=== PATIENT | female | born 1985 | race Caucasian/White ===

== ENCOUNTER 2025-06-27 15:07 | Emergency (ER) | payer BC, SELFPAY ==
--- NOTE | ~2025-06-27 | XR_ITS ---
EXAMINATION: XR foot LT min 3V, 06/27/2025 15:18 CDT HISTORY: injured left foot while dancing. pain distal 1st toe and met COMPARISON: No comparisons available. Findings: No acute fracture or malalignment. No significant degenerative changes. Soft tissues unremarkable. Impression: No acute fracture or malalignment. Reviewed, dictated and finalized at location P. Impression: No acute fracture or malalignment.
[2025-06-27 15:31] VITALS: BP 116/84; PULSE 113; RESP 16; TEMP 36.4; O2SAT 98
--- NOTE | 2025-06-27 15:41 | ED.LOWEXIN ---
HPI - Extremity Injury (Lower) General Chief Complaint: Extremity Injury, Lower Stated Complaint: INJURED L FOOT Time Seen by Provider: 06/27/25 15:41 Source: patient Mode of arrival: ambulatory Limitations: no limitations History of Present Illness HPI Narrative: 40-year-old female presented for complaint of left great toe pain. Onset yesterday. Endorses a cut to the end of the toe. She says she was dancing at a bar, and was intoxicated prior to the pain. Does not recall an injury. She was able to clean blood off of the toe today. Endorses ?a bump? at the MTP area. Denies bruising, numbness, tingling, weakness or decreased range of motion. Related Data Home Medications ?Medication ?Instructions ?Recorded ?Confirmed ?Last Taken ?Type alprazolam 1 mg tablet (Xanax) 1 mg PO QHS 10/29/22 06/27/25 Unknown History rivaroxaban 20 mg tablet (Xarelto) 20 mg PO DAILY 10/29/22 06/27/25 Unknown History trazodone 100 mg tablet 100 mg PO QHS PRN unknown 10/29/22 06/27/25 Unknown History zolpidem 10 mg tablet (Ambien) 10 mg PO QHS PRN unknown 10/29/22 06/27/25 Unknown History Allergies Allergy/AdvReac Type Severity Reaction Status Date / Time Estrogens Allergy DVT Verified 06/27/25 15:22 Review of Systems Review of Systems: CONSTITUTIONAL: Denies body aches, fever, chills CARDIOVASCULAR: Denies chest pain, palpitations, or edema. RESPIRATORY: Denies cough or dyspnea. SKIN: Denies rash, itching, or wounds. MUSCULOSKELETAL: reports left great toe pain NEUROLOGIC: Denies numbness, tingling, or weakness. 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, secondary to Thrombin gene mutation and estrogen stimulation (will not require lifelong anticoagulants) Social History Social History (Updated 10/29/22 @ 14:10 by Alyson Keita) Smoking status: Unknown if ever smoked Alcohol intake: never Substance use: never Substance use type: does not use Lack of Transportation: No Lack of Food: Never True Current Housing: I Have Housing Concerned About Future Housing: No Difficulty Paying Gas/Electric Bills: No Difficulty Paying for Meds: No Currently Unemployed: No Education: High School Diploma/GED Difficulty w/ Childcare or Family Care: No Living arrangements: with family Occupation/Education: occupation Gender identity (if verbalized by the patient): Female Sexual Orientation (if Verbalized by the Patient): Straight or Heterosexual Comments At time of signature, I have reviewed and agree with nursing past medical, surgical, social and family history unless otherwise noted. Please see nursing chart for further information. There is no relevant family history pertinent to the presenting complaint Exam Narrative: GENERAL: Well-appearing CHEST: Speaks in full sentences. No respiratory distress. HEART: Regular rate and rhythm. Normal and equal peripheral pulses. EXTREMITIES: Left foot great toe with 0.5 cm laceration flap to distal end of the toe, no active bleeding. Toe has normal strength and sensation, normal range of motion. Effusion noted to 1st MTP area. No point tenderness. alignment normal, pulse palpable and equal bilaterally, skin warm, dry, pink. Capillary refill less than 3 seconds. SKIN: Warm, dry NEURO: Alert and oriented x3. PSYCH: Normal mood and affect Course Course Emergency Course: Patient is aware of diagnosis, understands and agrees to treatment plan. Anticipatory guidance given. Patient agrees to follow-up as directed and is aware of reasons to seek care at the emergency department. Portions of this record may have been created with voice recognition software Level of Care: Express Care Visit Vital Signs Vital signs: Vital Signs Temperature 97.5 F L 06/27/25 15:31 Pulse Rate 113 H 06/27/25 15:31 Respiratory Rate 16 06/27/25 15:31 Blood Pressure 116/84 06/27/25 15:31 Pulse Oximetry 98 06/27/25 15:31 Temperature 97.5 F L 06/27/25 15:31 Pulse Rate 113 H 06/27/25 15:31 Respiratory Rate 16 06/27/25 15:31 Blood Pressure 116/84 06/27/25 15:31 Pulse Oximetry 98 06/27/25 15:31 Reviewed MDM - Extremity Injury (Lower) MDM Narrative Medical decision making narrative: Discussed physical exam findings c/w laceration left great toe. Dressing applied. Xray reviewed with pt. Advised supportive measures and signs/symptoms to go to the ER. Pt is appropriate for outpt treatment and f/u. Differential Diagnosis Differential diagnosis: Likely fracture of toe and other (Toe sprain, dislocation, laceration) Imaging Data Radiologist's impression: Patient: Mckenna Tillman : 1985 MR#: [id number] Age: 40 Acct:[id number] Loc: [facility] ADM Date: 06/27/[address]: EXAMINATION: XR foot LT min 3V, 06/27/2025 15:18 CDT HISTORY: injured left foot while dancing. pain distal 1st toe and met COMPARISON: No comparisons available. Findings: No acute fracture or malalignment. No significant degenerative changes. Soft tissues unremarkable. Impression: No acute fracture or malalignment. Discharge Plan Discharge Clinical Impression: Laceration of toe Patient Disposition: Home Condition: Stable Instructions: Antibiotic Form, Laceration (ED) Additional Instructions: Keep the wound clean and dry - cleanse with warm water and mild soap and allow to fully dry. Ok to apply neosporin to the site Keep it open to air (no bandages) unless the wound is at risk for contamination. Watch for worsening symptoms including pain, redness, swelling, streaking, pus/drainage, fever. Go to the ER with any of these symptoms or concerns. Rest and elevate the left leg; bear weight as tolerated Apply ice 15-20 minute intervals several times a day Motrin 800mg every 8 hours, alternate with Tylenol 1000mg every 8 hours as needed Follow with personal care home administrator or grocery specialist as needed Follow up with primary care provider in 1 week as needed. Patient Language: Barbadian Prescriptions: New ibuprofen 800 mg tablet 800 mg PO TID PRN (Reason: pain) Qty: 15 0RF No Action Xarelto 20 mg tablet 20 mg PO DAILY Rx Instructions: must administer with evening meal alprazolam [Xanax] 1 mg tablet 1 mg PO QHS trazodone 100 mg tablet 100 mg PO QHS PRN (Reason: unknown) zolpidem [Ambien] 10 mg tablet 10 mg PO QHS PRN (Reason: unknown) Follow-up/Referrals: Dedrick,MADY Quiles [Primary Care Provider, Unknown] Time of Disposition: 15:54
== END 2025-06-27 16:04 | disposition home or self-care (01) ==
PROVIDERS: Emergency Provider Nurse Practitioner Family; PCP Nurse Practitioner Family
DX: S91.112A Laceration without foreign body of left great toe without damage to nail, initial encounter (principal); X58.XXXA Exposure to other specified factors, initial encounter; Y93.41 Activity, dancing; Y92.9 Unspecified place or not applicable; Z86.718 Personal history of other venous thrombosis and embolism
CPT/HCPCS: 73630; 99213; G0463